=== PATIENT | female | born 1995 ===

== ENCOUNTER 2023-05-09 21:47 | Inpatient (IN) | payer OTHER ==
[~2023-05-09] VITALS: Ht 152.4 cm; Wt 65.4 kg
[2023-05-09 22:12] LABS: HEMATOCRIT 32.8 % (36.0-47.0); HEMOGLOBIN 11.1 g/dl (12.0-15.5); MEAN CORPUSCULAR HEMOGLOBIN 31.2 pg (27.0-33.0); MEAN CORPUSCULAR HGB CONC 33.8 g/dl (32.0-36.5); MEAN CORPUSCULAR VOLUME 92.1 fl (80.0-96.0); PLATELET COUNT, AUTOMATED 293 10^3/uL (150-450); RED BLOOD COUNT 3.56 10^6/uL (4.00-5.40); WHITE BLOOD COUNT 10.1 10^3/uL (4.0-10.0)
[2023-05-09 22:20] VITALS: BP 100/57
[2023-05-09] MEDS ORDERED: OXYTOCIN DRIP 30 UNITS in IV 1 EA IV PRN (22:20)
[2023-05-09] MEDS ORDERED: METHYLERGONOVINE MALEATE 0.2MG/ML 1ML VIAL IM PRN (22:20)
[2023-05-09] MEDS ORDERED: TRANEXAMIC ACID INJection 1,000 MG in NS 100 ML IV PRN (22:20)
[2023-05-09] MEDS ORDERED: CARBOPROST TROMETHAMINE 250 MCG/ML AMP IM PRN (22:20)
[2023-05-09 22:27] LABS: INR 0.97; PROTHROMBIN TIME 12.6 SECONDS (12.5-14.5)
[2023-05-09 22:28] LABS: PARTIAL THROMBOPLASTIN TIME 27.1 SECONDS (24.8-34.2)
[2023-05-09] MEDS ORDERED: PRENTAB9 PO (23:13)
[2023-05-09] MEDS ORDERED: HOME MED LIST COMPLETE! XX SCH (23:15)
[2023-05-09] MEDS: LR 1,000 ML IV SCH (23:21)
[2023-05-09 23:28] VITALS: BP 105/61
[2023-05-10] VITALS (11 sets, daily range): BP systolic 96–119; BP diastolic 51–68
[2023-05-10] MEDS ORDERED: INDOMETHACIN 25 MG CAP PO ONE
[2023-05-10 04:16] LABS: HEMATOCRIT 29.6 % (36.0-47.0); MEAN CORPUSCULAR HEMOGLOBIN 31.2 pg (27.0-33.0); MEAN CORPUSCULAR HGB CONC 33.8 g/dl (32.0-36.5); MEAN CORPUSCULAR VOLUME 92.2 fl (80.0-96.0); PLATELET COUNT, AUTOMATED 234 10^3/uL (150-450); RED BLOOD COUNT 3.21 10^6/uL (4.00-5.40); WHITE BLOOD COUNT 9.6 10^3/uL (4.0-10.0)
[2023-05-10] MEDS: LR 1,000 ML IV SCH (05:51)
[2023-05-10] MEDS ORDERED: INDOMETHACIN 25 MG CAP PO SCH (06:00)
== END 2023-05-10 10:18 | disposition short-term general hospital (02) | DRG 566 ==
LOC: M LDI 21:47
PROVIDERS: ADMIT Advanced Practice Midwife; ATTEND Advanced Practice Midwife
DX: O44.13 Complete placenta previa with hemorrhage, third trimester (principal); Z3A.37 37 weeks gestation of pregnancy; Z87.891 Personal history of nicotine dependence